=== PATIENT | male | born 1970 | race Hispanic/Latino ===

== ENCOUNTER 2022-07-13 11:10 | Emergency (ER) | payer SELFPAY ==
[~2022-07-13] VITALS: Ht 162.6 cm; Wt 75.0 kg
[2022-07-13 11:37] VITALS: BP 136/88
[2022-07-13 12:00] VITALS: BP 126/82
[2022-07-13 12:30] VITALS: BP 124/81
[2022-07-13 13:00] VITALS: BP 116/80
[2022-07-13 13:06] VITALS: BP 116/80
== END 2022-07-13 13:07 | disposition home or self-care (01) | DRG 179 ==
LOC: ED 11:10
DX: U07.1 COVID-19 (principal); R52 Pain, unspecified; I10 Essential (primary) hypertension; E78.00 Pure hypercholesterolemia, unspecified